=== PATIENT | female | born 1940 | race African-American/Black ===

== ENCOUNTER → 2016-11-01 | Outpatient (CLI) | payer MEDICARE, BC ==
--- NOTE | 2016-11-01 13:47 | RAD ---
Bone Densitometry History: Osteoporosis screening, ovarian failure, tobacco use, steroid use, black female. Findings: Bone Densitometry was performed with dual photon absorption of the lumbar spine and proximal right femur. Lumbar Spine: Bone density is 1.364 g/cm2 for L1-L4. T-score is 1.5. Levoconvex scoliosis of lower thoracic and lumbar spine is seen. Right Femur: Bone density is 1.030 g/cm2. T-score is 0.2. Impression: Bone mineral density of the lumbar spine and right hip appears within normal limits. World Health Organization definition of osteoporosis and osteopenia for women: normal equals T score at or above -1.0 standard deviations; osteopenia equals T score between -1.0 and -2.5 standard deviations; osteoporosis equals T score at or below -2.5 standard deviations.
== END | disposition home or self-care (01) ==
LOC: DXRAD 13:15
PROVIDERS: ATTEND Family Medicine
DX: Z13.820 Encounter for screening for osteoporosis (principal); E28.39 Other primary ovarian failure; M41.84 Other forms of scoliosis, thoracic region; M41.86 Other forms of scoliosis, lumbar region; Z72.0 Tobacco use
CPT/HCPCS: 77080

== ENCOUNTER 2020-10-12 19:01 | Emergency (ER) | payer MEDICARE, BC ==
[~2020-10-12] VITALS: Ht 165.1 cm; Wt 59.1 kg
--- NOTE | 2020-10-12 20:23 | RAD ---
Exam: Chest 2 views INDICATION: Chest palpitations TECHNIQUE: Frontal and lateral views of the chest Comparisons: None FINDINGS: The cardiomediastinal silhouette and pulmonary vessels are within normal limits. The lung and pleural spaces are clear. IMPRESSION: No acute cardiopulmonary process. Electronically signed by: Sommer Mulligan MD (10/12/2020 8:20 PM) IRENE
--- NOTE | 2020-10-12 20:29 | PHYS DOC ---
Adult General Chief Complaint Chief Complaint: Palpitations HPI HPI Patient is a 79-year-old female, presents to the emergency department complaining of a sudden onset of chest fluttering that started yesterday evening approximately 1800. Patient states it has been off and on since then and her niece convinced her to come to the emergency department to get an evaluation. Patient denies any chest pain, denies shortness of breath, denies diaphoretic episodes, denies nausea vomiting diarrhea or constipation. Patient denies any visual changes, denies headaches. Patient denies recent fever or chills. Patient denies any other physical complaints or physical symptoms. (MOOKIE NG APRN) Review of Systems Review of Systems 14 body systems of review of systems have been reviewed. See HPI for pertinent positives and negative responses, otherwise all other systems are negative, nonpertinent or noncontributory. (MOOKIE NG APRN) Current Medications Current Medications Patient reports taking albuterol MDI, Flovent 44 mg MDI, verapamil 180 mg, atorvastatin 20 mg, hydrochlorothiazide 25 mg. (MOOKIE NG APRN) Allergies Allergies Allergies Coded Allergies Type Severity Reaction Last Updated Verified No Known Drug Allergies 10/12/20 No (MOOKIE NG APRN) Physical Exam Physical Exam Constitutional: Well developed, well nourished, no acute distress, non-toxic appearance. 79-year-old female no apparent distress. HENT: Normocephalic, atraumatic, bilateral external ears normal, oropharynx moist, no oral exudates, nose normal. Bilateral TMs within normal limits, no tonsillar edema or infectious process appreciated of the throat. No lymphadeno lauren of the head or neck appreciated. Eyes: PERRLA, EOMI, conjunctiva normal, no discharge. Neck: Normal range of motion, no tenderness, supple, no stridor. Cardiovascular:Heart rate regular rhythm, no murmur, heart sounds S1-S2 to auscultation. Lungs & Thorax: Bilateral breath sounds clear to auscultation all lung yoo. No adventitious lung sounds appreciated. Abdomen: Bowel sounds normal, soft, no tenderness, no masses, no pulsatile masses. Skin: Warm, dry, no erythema, no rash. Back: No tenderness, no CVA tenderness. Extremities: No tenderness, no cyanosis, no clubbing, ROM intact, no edema. Neurologic: Alert and oriented X 3, normal motor function, normal sensory function, no focal deficits noted. Psychologic: Affect normal, judgement normal, mood normal. (MOOKIE NG APRN) EKG EKG EKG performed at 1923 by house respiratory therapy staff, shows a normal sinus rhythm with occasional PVC, heart rate 86 bpm, IA interval 0.168, QTc interval 0.498, no acute STEMI, no ACS, no acute ischemia appreciated, EKG interpreted by ED attending physician Dr. Babin (MOOKIE NG APRN) Radiology/Procedures Radiology/Procedures PATIENT: LEAH NAYLOR ACCOUNT: [id number] : 1940 LOCATION: ER AGE: 79 SEX: F EXAM STATUS: REG ER ORD. PHYSICIAN: MOOKIE NG APRN REASON: CHEST PALPITATIONS PROCEDURE: CHEST PA & LATERAL Exam: Chest 2 views INDICATION: Chest palpitations TECHNIQUE: Frontal and lateral views of the chest Comparisons: None FINDINGS: The cardiomediastinal silhouette and pulmonary vessels are within normal limits. The lung and pleural spaces are clear. IMPRESSION: No acute cardiopulmonary process. Electronically signed by: Sommer Espinoza MD (10/12/2020 8:20 PM) [facility] DICTATED AND SIGNED BY: SOMMER ESPINOZA MD DATE: 10/12/202017 CC: MOOKIE NG APRN; DARVIN FORREST MD; MELI BABIN MD ~MTH0 0 (MOOKIE NG APRN) Heart Score C/O Chest Pain: No Risk Factors: Risk Factors: DM, Current or recent (<one month) smoker, HTN, HLP, family history of CAD, obesity. Risk Scores: Risk Factors: DM, Current or recent (<one month) smoker, HTN, HLP, family history of CAD, obesity. (MOOKIE NG APRN) Course & Med Decision Making Course & Med Decision Making Pertinent Labs and Imaging studies reviewed. (See chart for details) 79-year-old female, vital signs reviewed, presents emergency department complaining of chest fluttering on the left side. Patient did not have any chest pain, no discomfort, no shortness of breath. Physical examination was unremarkable. Related to patient's age and physical history, will initiate cardiorespiratory work-up. Discussed patient case with ED attending physician Dr. Babin who has assumed patient care at this time. (MOOKIE NG APRN) Course & Med Decision Making Patient care assumed at checkout. Laboratory analysis not concerning. Chest x-ray not concerning. EKG and troponin not concerning. On reassessment, patient stated she was asymptomatic and wanted to go home and did not want to be in the emergency department any more. Patient offered admission given her age and symptoms for observation, but patient politely declined stating that she would just call her primary care physician first thing in the morning. Discu ssed the risks of leaving if indeed there was a cardiac issue underlying including significant illness, disability and/or . Patient stated she felt fine and was ready to be discharged home. (MELI BABIN MD) Dragon Disclaimer Dragon Disclaimer This electronic medical record was generated, in whole or in part, using a voice recognition dictation system. (MOOKIE NG APRN) Departure Departure: Referrals: DARVIN FORREST MD (PCP) MOOKIE NG APRN Oct 12, 2020 20:29 MELI BABIN MD Oct 12, 2020 23:13
[2020-10-12 20:32] LABS: BASO # 0.1 x10^3/uL (0.0-0.2); BASO % 1 % (0-3); EOS # 0.9 x10^3/uL (0.0-0.7); EOS % 9 % (0-3); HEMATOCRIT 32.6 % (36.0-47.0); HEMOGLOBIN 10.8 g/dL (12.0-15.5); LYMPH # 2.1 x10^3/uL (1.0-4.8); LYMPH % 20 % (24-48); MEAN CORPUSCULAR HEMOGLOBIN 32 pg (25-35); MEAN CORPUSCULAR HGB CONC 33 g/dL (31-37); MEAN CORPUSCULAR VOLUME 98 fL (79-100); MONO # 0.8 x10^3/uL (0.0-1.1); MONO % 8 % (0-9); NEUT # 6.3 x10^3uL (1.8-7.7); NEUT % 62 % (31-73); PLATELET COUNT 328 x10^3/uL (140-400); RED BLOOD COUNT 3.33 x10^6/uL (3.50-5.40); RED CELL DISTRIBUTION WIDTH 12.6 % (11.5-14.5); WHITE BLOOD COUNT 10.3 x10^3/uL (4.0-11.0)
[2020-10-12 20:36] LABS: CALCIUM 9.7 mg/dL (8.5-10.1); CREATININE 1.3 mg/dL (0.6-1.0); GFR 47.7; POTASSIUM 3.7 mmol/L (3.5-5.1)
[2020-10-12 20:54] LABS: ALBUMIN 4.3 g/dL (3.4-5.0); ALBUMIN/GLOBULIN RATIO 1.5 (1.0-1.7); DIRECT BILIRUBIN 0.1 mg/dL (0.0-0.2); MAGNESIUM 2.1 mg/dL (1.8-2.4); TOTAL BILIRUBIN 0.2 mg/dL (0.2-1.0); TOTAL PROTEIN 7.2 g/dL (6.4-8.2)
[2020-10-12 22:44] VITALS: BP 149/87
--- NOTE | 2020-10-13 06:45 | EKG ---
[address] [address] Test Date: 2020-10-12 Test Time: 19:23:12 Pat Name: LEAH NAYLOR Department: Room: Gender: F Web Site Manager: PIETER : 1940 Requested By: MOOKIE NG Order Number: [id number] Reading MD: Measurements Intervals [place] Rate: 68 P: 52 OR: 168 QRS: -57 QRSD: 90 T: 50 QT: 468 QTc: 498 Interpretive Statements SINUS RHYTHM ABNORMAL LEFT AXIS DEVIATION R-S TRANSITION ZONE IN V LEADS DISPLACED TO THE LEFT LEFT ANTERIOR FASCICULAR BLOCK PROLONGED QT ABNORMAL ECG RI6.02 No previous ECG available for comparison
== END 2020-10-12 23:35 | disposition home or self-care (01) ==
LOC: ER 19:01
DX: I49.8 Other specified cardiac arrhythmias (principal); I44.4 Left anterior fascicular block; R00.2 Palpitations
CPT/HCPCS: 36415; 71046; 80053; 80076; 82553; 83735; 83880; 84484; 85025; 93005; 99285-25

== ENCOUNTER 2021-11-14 07:37 | Emergency (ER) | payer MEDICARE, BC ==
[~2021-11-14] VITALS: Ht 165.1 cm; Wt 59.1 kg
[2021-11-14 07:45] VITALS: BP 143/83
--- NOTE | 2021-11-14 08:16 | PHYS DOC ---
Past History Past Medical History: Asthma, High Cholesterol, Hypertension Alcohol Use: None General Adult EDM: Chief Complaint: LOWER EXT PAIN HPI: HPI: Patient is a 80-year-old female coming in for 2 days of left groin and lower extremity pain. Patient states that pain started off her groin and now radiates to the front of her left thigh it does not involve the lower leg. Patient is concerned she is strained muscle. Took a Tylenol with some improvement last night, has not take anything today. No urinary or stool complaints. No back pain. Patient states that she has been active prior to the pain and doing gardening and working outside. Denies any falls. Review of Systems: Review of Systems: All other systems within normal limits except for as noted in the HPI Allergies: Allergies: Allergies Coded Allergies Type Severity Reaction Last Updated Verified No Known Drug Allergies 10/12/20 No Physical Exam: PE: Constitutional: Well developed, well nourished, no acute distress, non-toxic appearance. [] HENT: Normocephalic, atraumatic, bilateral external ears normal, nose normal. [] Eyes: PERRLA, conjunctiva normal, no discharge. [] Neck: No rigidity, supple, no stridor. [] Cardiovascular: Regular rate and rhythm, brisk cap refill [] Lungs & Thorax: Non labored symmetric respirations, no tachypnea or respiratory distress [] Abdomen: Soft, nondistended, no inguinal hernias or lumps or masses.. Skin: Warm, dry, no erythema, no rash. [] Back: Unremarkable, no back pain to palpation Extremities: No deformities, range of motion grossly intact, no lower extremity edema. Active and passive range of motion intact. [] Neurologic: Alert and oriented X 3, no focal deficits noted. [] Psychologic: Affect normal, judgement normal, mood normal. [] EKG: EKG: [] Radiology/Procedures: Radiology/Procedures: [address] [address] IMAGING REPORT Signed PATIENT: LEAH NAYLOR ACCOUNT: [id number] : 1940 LOCATION: ER AGE: 80 SEX: F EXAM STATUS: REG ER ORD. PHYSICIAN: CHEYENNE DELEON MD REASON: pain PROCEDURE: HIP LEFT 2 VIEW Left femur AP lateral x-rays HISTORY: Leg pain. FINDINGS: No fracture. No dislocation. No bone lesion. Radiopaque densities along the medial thigh which are outside of the patient. IMPRESSION: No acute osseous injury. Left hip x-rays 2 views HISTORY: Left hip pain. FINDINGS: No fracture. No dislocation. No bone lesion. Small proximal foraminal ossicle adjacent to the greater trochanter most likely related to gluteus tendinopathy. There is a small chronic appearing ossicle lateral to the acetabulum as well. IMPRESSION: No acute osseous injury. Electronically signed by: Giacomo Shearer MD (11/14/2021 8:35 AM) [id number] DICTATED AND SIGNED BY: GIACOMO SHEARER MD DATE: 11/14/21832 CC: DARVIN FORREST MD; CHEYENNE DELEON MD ~ [] Heart Score: C/O Chest Pain: No Risk Factors: Risk Factors: DM, Current or recent (<one month) smoker, HTN, HLP, family history of CAD, obesity. Risk Scores: Score 0 - 3: 2.5% MACE over next 6 weeks - Discharge Home Score 4 - 6: 20.3% MACE over next 6 weeks - Admit for Clinical Observation Score 7 - 10: 72.7% MACE over next 6 weeks - Early Invasive Strategies Course & Med Decision Making: Course & Med Decision Making Pertinent Labs and Imaging studies reviewed. (See chart for details) [] Dragon Disclaimer: Dragon Disclaimer: This electronic medical record was generated, in whole or in part, using a voice recognition dictation system. Departure Departure: Impression: Primary Impression: Muscle strain of left thigh Disposition: HOME / SELF CARE / HOMELESS Condition: STABLE Referrals: DARVIN FORREST MD (PCP) Patient Instructions: Muscle Strain Scripts Cyclobenzaprine Hcl (CYCLOBENZAPRINE HCL) 5 Mg Tablet 1 TAB PO QHS PRN for MUSCLE PAIN for 7 Days, #7 TAB Prov: CHEYENNE DELEON MD 11/14/21 Naproxen (NAPROXEN) 500 Mg Tablet 1 TAB PO BID for pain for 15 Days, #30 TAB 0 Refills Prov: CHEYENNE DELEON MD 11/14/21 CHEYENNE DELEON MD November 14, 2021 08:16
[2021-11-14] MEDS ORDERED: KETOROLAC 60 MG/2 ML VIAL. IM ONE (08:30)
--- NOTE | 2021-11-14 08:38 | RAD ---
Left femur AP lateral x-rays HISTORY: Leg pain. FINDINGS: No fracture. No dislocation. No bone lesion. Radiopaque densities along the medial thigh wh ich are outside of the patient. IMPRESSION: No acute osseous injury. Left hip x-rays 2 views HISTORY: Left hip pain. FINDINGS: No fracture. No dislocation. No bone lesion. Small proximal foraminal ossicle adjacent to t he greater trochanter most likely related to gluteus tendinopathy. There is a small chronic appearing ossicle lateral to the acetabulum as well. IMPRESSION: No acute osseous injury. Electronically signed by: Vincent Shearer MD (11/14/2021 8:35 AM) [id number]
[2021-11-14] MEDS ORDERED: NAPR-514 PO (08:49)
[2021-11-14] MEDS ORDERED: CYCL5TAB PO (08:49)
== END 2021-11-14 08:55 | disposition home or self-care (01) ==
LOC: ER 07:37
DX: S76.912A Strain of unspecified muscles, fascia and tendons at thigh level, left thigh, initial encounter (principal); J45.909 Unspecified asthma, uncomplicated; E78.00 Pure hypercholesterolemia, unspecified; I10 Essential (primary) hypertension; X58.XXXA Exposure to other specified factors, initial encounter; Y93.89 Activity, other specified; Y92.89 Other specified places as the place of occurrence of the external cause; Y99.8 Other external cause status
CPT/HCPCS: 73502; 73552; 96372; 99284; J1885